=== PATIENT | female | born 1955 | race Caucasian/White ===

== ENCOUNTER 2018-12-17 08:04 | Day surgery (SDC) | payer MEDICARE, OTHER ==
[2018-12-17] VITALS (11 sets, daily range): BP systolic 100–149; BP diastolic 63–78; PULSE 67–98; RESP 14–16; Ht 160 cm; Wt 81.3 kg
[~2018-12-17] VITALS: Ht 160 cm; Wt 81.3 kg
[~2018-12-17 08:04] MED LIST: ASPI81TA52 PO; CEFAZOLIN 2 GM/50 ML (PMX) 50 ML IVPB SCH; LIPA1CAP6 PO; LORA10TA3 PO; MAGN400T27 PO; METF500T24 PO; OMEP40CA6 PO; POTA10TA37 PO; SOD CHLORIDE 0.9% 1,000 ML IV SCH
--- NOTE | 2018-12-17 10:29 | PREAC ---
Date/Time of Note Date/Time of Note DATE: 12/17/18 TIME: 10:28 Anesthesia Eval and Record Evaluation Time Pre-Procedure Interview DATE: 12/17/18 TIME: 10:28 Age 63 Sex female NPO: 8 hrs Preoperative diagnosis right breast mass Planned procedure excisional biopsy right breast mass Past Medical History Past Medical History: Includes Endo: Diabetes Surgery & Anesthesia Issues No known issue Meds Anticoagulation: No Beta Chasity within 24 hr: No Reason Beta Chasity not given: Pt. not on B-Chasity Reported Medications Potassium Chloride* (K-Dur*) 10 Meq Tab.prt.sr, 10 MEQ PO DAILY, TAB 12/17/18 Magnesium Oxide* (Mag-Oxide*) 400 Mg Tablet, 400 MG PO DAILY, TAB 12/17/18 Omeprazole* (Omeprazole*) 40 Mg Capsule.dr, 40 MG PO DAILY, #30 CAP 12/17/18 Gxohuy-Toiwjibm-Qdhoujh* (Creon DR* 24,000) 24,000 L-76,000-120,000 Unit Capsule., 1 CAP PO WITH MEALS, CAP 12/17/18 Metformin Hcl* (Metformin Hcl*) 500 Mg Tablet, 500 MG PO WITH BREAKFAST DINNE, #60 TAB 12/17/18 Loratadine* (Loratadine*) 10 Mg Tablet, 10 MG PO DAILY, #30 TAB 12/17/18 Aspirin (Low Dose Aspirin) 81 Mg Tablet.dr, 81 MG PO DAILY, #30 TAB 12/17/18 Current Medications Cefazolin Sodium/ Dextrose 50 ml @ 100 mls/hr PRE-OP X1 IVPB ; Start 12/17/18 at 06:00; Stop 12/17/18 at 15:00 Sodium Chloride 1,000 ml @ 75 mls/hr [id number] IV Last administered on 12/17/18at 09:48; Admin Dose 75 MLS/HR; Start 12/17/18 at 06:00 Meds reviewed: Yes Allergies Coded Allergies: No Known Drug Allergy (Verified Allergy, Unknown, 12/17/18) Allergies Reviewed: Yes Labs/Studies Labs Reviewed: Reviewed by anesthesiologist Result Diagram: 12/17/1892212/17/1823 Laboratory Tests 12/17/18 09:23 test: N/A Studies: ECG (sr), CXR (nl) Pre-procedure Exam Last vitals Vital Signs Date Temp Pulse Resp B/P (MAP) Pulse Ox O2 O2 Flow FiO2 Time Delivery Rate 12/17/18 98.0 67 16 149/78 98 Room Air 09:42 (101) Airway: Adequate mouth opening Mallampati: Mallampati I Teeth: Normal Lung: Normal Heart: Normal ASA Physical Status ASA physical status: 2 Emergency: None Planned Anesthetic General/MAC: LMA Planned Pain Management Parenteral pain med Pre-operative Attestations Prior to commencing anesthesia and surgery, the patient was re-evaluated, there was verification of: *The patient's identity *The results of appropriate recent lab work and preoperative vital signs *The above evaluation not changing prior to induction *Anesthetic plan, risk benefits, alternative and complications discussed with patient/family; questions answered; patient/family understands, accepts and wishes to proceed. REX MENA MD Dec 17, 2018 10:29
[2018-12-17] MEDS ORDERED: hydrALAzine 20 MG INJ IV PRN (10:30)
[2018-12-17] MEDS ORDERED: ONDANSETRON 4 MG INJ IV PRN (10:30)
[2018-12-17] MEDS ORDERED: HYDROmorphONE 1 MG/5 ML IV SYRINGE IV PRN ×3 (10:30)
[2018-12-17] MEDS ORDERED: FENTAnyl 50 MCG/ML VIAL IV PRN ×3 (10:30)
[2018-12-17] MEDS ORDERED: OXYCODONE/ACETAMINOPHEN (5/325) TAB PO PRN ×2 (10:30)
[2018-12-17] MEDS ORDERED: DIPHENHYDRAMINE 50 MG INJ IV PRN (10:30)
[2018-12-17] MEDS ORDERED: LABETALOL HCL 20MG INJ IV PRN (10:30)
[2018-12-17] MEDS ORDERED: MEPERIDINE 25 MG INJ IV PRN (10:30)
[2018-12-17] MEDS ORDERED: MIDAZOLAM 1 MG/ML 2 ML INJ ONE (10:32)
[2018-12-17] MEDS ORDERED: METOCLOPRAMIDE 10 MG INJ ONE (10:40)
[2018-12-17] MEDS ORDERED: PROPOFOL 20 ML ONE ×2 (10:40→13:11)
[2018-12-17] MEDS ORDERED: FENTAnyl 50 MCG/ML VIAL ONE (10:40)
[2018-12-17] MEDS ORDERED: CEFAZOLIN 1 GM INJ ONE (10:40)
[2018-12-17] MEDS ORDERED: ONDANSETRON 4 MG INJ ONE (10:40)
[2018-12-17] MEDS ORDERED: EPHEDrine 25 MG/5 ML SYG ONE (11:16)
[2018-12-17] MEDS ORDERED: HYDROmorphONE 2 MG/ML SYG ONE ×2 (11:27→13:11)
--- NOTE | 2018-12-17 11:38 | SIPON ---
Date/Time of Note Date/Time of Note DATE: 12/17/18 TIME: 11:37 Operative Report Preoperative Diagnosis Atypical ductal hyperplasia right breast Postoperative Diagnosis Same Operation/Procedure Performed Excisional biopsy right breast Surgeon see signature line graphic design assistant Dr Larios Anesthesia: general Estimated blood loss: 0 - 10 ml's Transfusion Required none Specimen Right breast specimen Grafts/Implants none Complications none ANNA RUIZ MD Dec 17, 2018 11:38
[2018-12-17] MEDS ORDERED: HYDROCODONE/APAP (7.5/325) TAB PO PRN (12:00)
--- NOTE | 2018-12-17 13:27 | OPR ---
DATE OF OPERATION: 12/17/2018 PREOPERATIVE DIAGNOSIS: Atypical ductal hyperplasia, right breast. POSTOPERATIVE DIAGNOSIS: Atypical ductal hyperplasia, right breast. OPERATION PERFORMED: Excisional biopsy, right breast. ANESTHESIA: General. ANESTHESIOLOGIST: Izablela Fajardo MD SURGEON: Omkar Malhotra MD TRAFFIC DIVISION COMMANDING OFFICER: Dr. Eric Kelley. INDICATIONS FOR PROCEDURE: The patient is a 63-year-old female who underwent screening mammography f ollowed by ultrasonography. She was found to have a suspicious lesion 9 o'clock area adjacent to the areola. She was counseled as to the benefits of core biopsy. Core biopsy confirmed atypical ductal hyperplasia. The patient was counseled as to the need for full excisional biopsy. She consented an d was scheduled for surgery. DESCRIPTION OF PROCEDURE: Patient was brought to the operating theater, placed under general anesthe dariana. The right breast was prepped and draped in usual sterile fashion. A periareolar incision was m disha from the 12 o'clock location through the 9 o'clock location to the 6 o'clock location. Subcutane ous tissue was dissected with cautery. The skin edges were then elevated with skin hooks and wide ci rcumferential dissection of the tissue in this region then took place using cautery. Specimen was el evated, transected, oriented, and sent for radiographic analysis to assess clip placement. Specimen was then sent for permanent pathologic analysis. The wound was irrigated. Residual bleeding was con trolled with cautery. The skin was then reapproximated with a deep dermal layer of 4-0 Vicryl suture s in interrupted fashion, followed by final skin approximation with 5-0 PDS sutures in subcuticular f ashion and Dermabond was applied. The patient tolerated the procedure well. The estimated blood los s was 20 mL. There were no complications and the patient was transported in stable condition to the recovery room. Dictated By: OMKAR MALHOTRA MD TL/NTS Conf#: [id number] DID#: [id number] CC: ERIC KELLEY MD;*EndCC*
--- NOTE | 2018-12-17 20:55 | RADRPT ---
Vent Rate: 64 bpm RR Interval: 940 msec RI Interval: 171 msec QRS Duration: 99 msec QT Interval: 433 msec QTC Interval: 447 msec P-R-T [place]: 59 - 51 - 52 degrees Sinus rhythm...normal P axis, V-rate 50- 99 Electronically Signed By: Edwin Hightower
--- NOTE | 2018-12-18 12:21 | PAC ---
Date/Time of Note Date/Time of Note DATE: 12/18/18 TIME: 12:20 Post-Anesthesia Notes Post-Anesthesia Note Last documented vital signs Vital Signs Date Temp Pulse Resp B/P (MAP) Pulse Ox O2 O2 Flow FiO2 Time Delivery Rate 12/17/18 97.2 69 15 128/66 99 Room Air 13:00 (86) 12/17/18 6.0 12:07 Activity: WNL Respiratory function: WNL Cardiovascular function: WNL Mental status: Baseline Pain reasonably controlled: Yes Hydration appropriate: Yes Nausea/Vomiting absent: No REX MENA MD Dec 18, 2018 12:20
== END 2018-12-17 14:22 | disposition home or self-care (01) ==
LOC: SDS 08:04
PROVIDERS: ATTEND Surgery Surgical Oncology
DX: N60.91 Unspecified benign mammary dysplasia of right breast (principal); E11.9 Type 2 diabetes mellitus without complications; I10 Essential (primary) hypertension
CPT/HCPCS: 19120; 71045; 80053; 82962; 85025; 85610; 85730; 88307; 93005; J0690; J1170; J2250; J2405; J2765; J3010